=== PATIENT | female | born 1990 | race Caucasian/White ===

== ENCOUNTER → 2020-11-22 | Outpatient (CLI) | payer BC ==
[2020-11-22 09:34] LABS: BASO # 0.06 (0.02-0.10); EOS # 0.35 (0.04-0.40); EOS % 3.8 % (1.0-5.0); HEMATOCRIT 40.7 % (37.0-47.0); HEMOGLOBIN 13.5 g/dL (12.5-16.0); LYMPH# 2.41 (1.50-4.00); MEAN CELL VOLUME 81 fl (78-100); MEAN CORPUSCULAR HEMOGLOBIN 27 pg (27-31); MEAN CORPUSCULAR HGB CONC 33 g/dL (33-37); MEAN PLATELET VOLUME 8.7 fl (7.4-10.4); MONO # 0.45 (0.20-0.80); PLATELET COUNT 336 K/mm3 (130-400); RED BLOOD COUNT 5.03 M/mm3 (4.10-5.30); WHITE BLOOD COUNT 9.2 K/mm3 (4.8-10.8)
[2020-11-22 09:38] LABS: POTASSIUM 4.1 mmol/L (3.5-5.1)
[2020-11-22 09:39] LABS: ALBUMIN 4.2 g/dL (3.5-5.0)
[2020-11-22 09:40] LABS: CALCIUM 9.3 mg/dL (8.3-10.5)
[2020-11-22 09:41] LABS: TOTAL PROTEIN 7.4 g/dL (6.4-8.3)
[2020-11-22 09:43] LABS: TOTAL BILIRUBIN 0.4 mg/dL (0.2-1.2)
== END ==
LOC: LAB 09:15
PROVIDERS: Nurse Practitioner Primary Care
DX: Z00.00 Encounter for general adult medical examination without abnormal findings (principal)